=== PATIENT | male | born 1930 | race Caucasian/White ===

== ENCOUNTER 2017-12-20 16:34 | Inpatient (IN) | payer MEDICARE ==
[~2017-12-20] VITALS: Ht 177.8 cm; Wt 75.0 kg
[~2017-12-20 16:34] MED LIST: ASPIR 8181 MG PO; ATORVASTATIN CA80 MG PO; CARVEDILOL6.25 MG PO; CLINDAMYCIN HC150 MG; LISINOPRIL10 MG PO; MOTRIN IB200 MG PO; NORVASC10 MG PO; OMEPRAZOLE20 MG PO; PERCOCET 7.5-31 EACH PO
--- NOTE | 2017-12-20 19:10 | NUR ---
PATIENT ADMITTED TO ROOM 110 WITH TRANSFER FROM THE STRETCHER TO THE BED AND 1 PERSON ASSIST. HE WAS ABLE TO STAND AT THE SIDE OF THE BED WITH ASSISTANCE AND VOID IN THE URINAL CLEAR URINE. TELE #4 WAS PLACED ON THE PATIENT AT THIS TIME AND RAILS WERE ALL RAISED UP IN THE BED AND WEIGHT WAS TAKEN VIA THE BED. PATIENT IS PLESANT BUT CONFUSED. REPORT GIVEN TO MILEY AQUINO.
--- NOTE | 2017-12-20 19:56 | EKG ---
[facility] [address] [facility] [place] [address] Signed Sinus rhythm with fusion complexes Low voltage QRS Borderline ECG No previous ECGs available Confirmed by KATHLEEN GLYNN MD ([id number]) on 12/20/2017 7:56:16 PM Electronically Signed By: KATHLEEN GLYNN MD 12/20/171955 PATIENT NAME: SHERRI SU Electrocardiogram DATE OF : [birth year] PHYSICIAN: KATHLEEN GLYNN MD REPORT #: [id number] REPORT IS CONFIDENTIAL AND NOT TO BE RELEASED WITHOUT AUTHORIZATION
--- NOTE | 2017-12-20 20:23 | NUR ---
PT HISTORY COMPLETED WITH ASSISTANCE OF PT'S . SHE REPORTS THAT PT WAS RECENT[facility]AG[facility]. PT ASSISTED TO THE BATHROOM, REQUIRED FREQUENT REDIRECTION AND INSTRUCTION REGARDING USE OF THE BATHROOM AND HYGIENE FOLLOWING. PT OVERESTIMATES ABILITY TO WALK HIMSELF TO THE BATHROOM, ATTEMPTS TO GET OUT OF BED BY HIMSELF. PT ASSISTED BACK TO BED AFTER USING THE BATHROOM, IMMEDIATELY STATES HE NEEDS TO USE THE BATHROOM WHEN HE IS BACK TO BED. PT ASSISTED TO THE BATHROOM AND BACK TO BED AGAIN. PT LUNGS SOUNDS CLEAR TO ALL LUNG KNOX. PT HAS PRODUCTIVE COUGH WITH THICK, YELLOW, MUCOUS. PT'S REPORTS THAT PT HAS 2-3 ALCOHOLIC BEVERAGES PER NIGHT, STATES THAT LAST TIME PT STOPPED DRINKING FOR A NIGHT, HE FELL. NOTIFIED, STATES "I'M AWARE". BED ALARM ACTIVATED, PT WITH CALL LIGHT IN REACH. PT'S PLANS TO GO HOME FOR THE NIGHT. PT DENIES OTHER NEEDS AT THIS TIME. EATING ICE CREAM AT THIS TIME.
--- NOTE | 2017-12-20 20:26 | NUR ---
ASSISTED/ 1 PA TO THE BATHROOM AND BACK TO BED. PATIENT HAD A BOWEL MOVEMENT. BED ALARM ON. SIDE TABLE AND CALL LIGHT WITHIN REACH.
--- NOTE | 2017-12-20 21:11 | NUR ---
charge nurse rounding note: In bed, bed alarm on, pt watching tv. call light and fluids at hands reach, no requests
--- NOTE | 2017-12-20 22:19 | NUR ---
ALARM WENT OFF, FOUND PATIENT NO GOWN IN THE BATHROOM. OFFERED THE GOWN, HE REFUSED STATED HE SLEEP NAKED. PATIENT IS BACK IN BED. PATIENT PULLED THE TELE OFF AND REFUSED TO HAVE IT BACK ON.
--- NOTE | 2017-12-20 22:30 | NUR ---
PT CRAWLED OUT OF BED. BED ALARM ON. TOOK OFF HIS GOWN, HAS PULLED TELE OFF, TELE REPLCED SEVERAL TIMES, WONT KEEP IT ON. BACK TO BED, SEMICOOPERATIVE, CONFUSED. RAILS UPX3, BED ALRM ON. MESSAGE LEFT WITH DR GLYNN HOSPITALIST PHONE NUMBER.
--- NOTE | 2017-12-20 22:34 | NUR ---
MILES ALEXANDER NOTIFIED RE PATIENT REFUSED TO HAVE GOWN AND TELE ON.
--- NOTE | 2017-12-20 23:15 | NUR ---
PT CRAWLING OUT OF BED, BED ALARM ON, CONFUSED, NOT FOLLOWING DIRECTIONS. BACK TO BED, RAILS UP, BED ALARM ON. PT REASSURED, NOT RECEPTIVE TO TEACHING OR INSTRUCTIONS
--- NOTE | 2017-12-20 23:16 | NUR ---
PT UP IN BED, STATES "I CAN'T SLEEP I NEED SOMETHING THIS BED IS SOUNCOMFORTABLE I CANT DO THIS", PT TURNING BACK AND FORTH IN BED, PULLING AT IV SITE. PT APPEARS AGITATED SO 1MG ATIVAN IV ADMINISTERED. CALL [facility] BED ALARM ON NAD PT IN VIEW OF NURSING STATION. IV WRAPPED WITH COBAN. DISTAL CMS INTACT.
--- NOTE | 2017-12-21 00:46 | NUR ---
PT ATTEMPTING EXIT BED. PT STATES THAT HE NEEDS TO USE THE BATHROOM. PT ASSISTED TO BATHROOM WITH 2 PA. PT VOIDED AND ASSISTED BACK TO BED. PT STATES THAT HE IS SHORT OF BREATH, SA02 88%. O2 PLACED AT 2LPM. PT ATTEMPTING TO TAKE OFF, EDUCATION PROVIDED. PT LEFT NC IN PLACE. TELE LEADS REPLACED. BED ALARM ACTIVATED. PT DENIES FURTHER NEEDS. CALL LIGHT WITHIN REACH. ROOM IN VIEW OF NURSES STATION WITH CURTAIN OPEN.
--- NOTE | 2017-12-21 01:06 | NUR ---
PT ATTEMPTING TO EXIT BED. STATES THAT HE NEEDS TO USE THE BATHROOM. REMINDED PT THAT HE JUST WENT. HE STATES THAT HE NEEDS TO GO AGAIN. ATTEMPTED TO HELP PT USE THE URINAL, PT STATES THAT HE WANTS TO USE THE BATHROOM. PT ASSISTED INTO THE BATHROOM WITH 2PA. PT UNABLE TO VOID. PT ASSISTED BACK TO BED. PT ATTEMPTING TO REMOVED TELE AND O2, EDUCATION PROVIDED. PT ASSESSMENT COMPLETE. RHONCI AUSCLTATED TO ALL LUNG KNOX. ENCOURAGED PT TO TAKE A DEEP BREATH AND COUGH. PT UNABLE TO FOLLOW COMMAND. RT NOTIFIED OF NEED FOR NEB. PT ORIENTED TO SELF ONLY. PT DENIES FURTHER NEEDS AT THIS TIME. CALL LIGHT WITHIN REACH. BED ALARM ACTIVATED. ROOM WITHIN VIEW OF NURSES STATION WITH CURTAIN OPEN.
--- NOTE | 2017-12-21 03:07 | NUR ---
PT TRYING TO CRAWL OUT OF BED, REAILS UP, BED ALARM ON. TOOK TELE AND O2 TUBING OFF. UP TO BRP WITH 2 ASSIST, VOIDED 250CC CLEAR YELLOW URINE. DECLINED TO USE URINAL OR BSC, WALKED TO BRP, SLIGHTLY UNSTEADY WITH 2 ASSIST. BACK TO BED, NOT RECEPTIVE TO INFORMATION/TEACHING. BED ALRM ON, O2 2LNC, TELE BACK ON
--- NOTE | 2017-12-21 04:05 | NUR ---
PT RESTING IN BED WITH EYES CLOSED. RESPIRATIONS EVEN AND UNLABORED. PT APPEARS TO BE SLEEPING. PT DOES NOT WAKE WHILE LOCKSTITCH COAT JOINER IN ROOM. CALL LIGHT WITHIN REACH. BED ALARM ACTIVATED. ROOM WITHIN VIEW OF NURSES STATION WITH CURTAIN OPEN.
--- NOTE | 2017-12-21 05:27 | NUR ---
PT RESTING IN BED WITH EYES CLOSED. RESPIRATIONS EVEN AND UNLABORED. PT DOES NOT WAKE WHILE DERRICK ENGINEER IN ROOM. APPEARS TO BE SLEEPING. CALL LIGHT WITHIN REACH. ROOM WITHIN VIEW OF NURSES STATION WITH CURTAIN OPEN. BED ALARM ACTIVE.
--- NOTE | 2017-12-21 07:07 | NUR ---
RECIEVED BEDSIDE REPORT FROM MILES TRENT. PT SLEEPING SOUNDLY. BED ALARM ON, PT'S PERSONAL SUPPLIES AND CALL LIGHT IN REACH.
--- NOTE | 2017-12-21 08:01 | NUR ---
PT IN BED. DROWSY, ORIENTED TO SELF, TO [place], THAT HE IS IN A HOSPITAL IN [place], AND THAT IT IS 2017. PT ANSWERED SEPTEMBER FOR DATE, DID NOT GIVE DAY. PT'S BED ALARM IS ON, PERSONAL SUPPLIES IN REACH, IS CALL BUTTON. PT REMINDED TO CALL FOR ASSISTANCE, AND NOT TO GET UP WITHOUT AWAITING ASSISTANCE FROM NURSING STAFF.
--- NOTE | 2017-12-21 08:43 | NUR ---
PT SITTING UPRIGHT IN BED, HOB ELEVATED. PT FEEDING HIMSELF BREAKFAST, TOLERATING WELL. PERSONAL SUPPLIES AND CALL LIGHT IN REACH. GAVE PT AM MEDICATIONS.
--- NOTE | 2017-12-21 10:05 | NUR ---
GOT URNINE SAMPLE FOR NURSE. PATIENT BACK IN BED WITH BED ALARM ON.
--- NOTE | 2017-12-21 10:30 | NUR ---
DR. GLYNN IN TO SEE PT, SPEAKING WITH HIM NOW.
--- NOTE | 2017-12-21 11:10 | NUR ---
PT RESTING IN BED WITH EYES CLOSED, OPENED EYES SPONTANEOUSLY WHEN THIS RN ENTERED ROOM. GAVE PT LASIX ORDERED, PROVIDED MEDICATION EDUCATION. PT VERBALIZED UNDERSTANDING. THIS RN ENCOURAGED PT TO GET UP OUT OF BED, TO RECLINER. PT AGREED, THEN ASKED IF HE COULD SLEEP A WHILE FIRST. PT NOW SLEEPING SOUNDLY IN BED. PT DID AGREE TO SIT UP IN RECLINER AFTER HE NAPS. CALL LIGHT AND PERSONAL SUPPLIES IN REACH.
--- NOTE | 2017-12-21 11:50 | NUR ---
PT SITTING UP IN RECLINER, FACING WINDOW, EATING FRUIT PLATE FOR LUNCH. PT HAS CHAIR ALARM ON. PERSONAL SUPPLIES AND CALL LIGHT IN REACH. PT HAD JUST VOIDED URINE PRIOR TO GETTING INTO RECLINER, WITH ASSISTANCE FROM VINCE CAMARGO. REMINDED PT TO CALL FOR ASSISTANCE, AND NOT TO GET UP WITHOUT A NURSING STAFF MEMBER WITH HIM. PT VERBALIZED UNDERSTANDING.
--- NOTE | 2017-12-21 13:35 | NUR ---
PATIENT'S CHAIR ALARM GOING OFF, THIS DISCIPLINARY HEARING OFFICER ENTERED ROOM TO ASSIST PATIENT UP TO BATHROOM. PATIENT STATED HE WOULD LIKE A SHOWER BUT NOT AT THIS TIME. PATIENT NEEDS REORIENTED AT TIMES. PATIENT BACK IN BED, BED ALARM ON. CALL LIGHT IN REACH. NO OTHER NEEDS AT THIS TIME.
--- NOTE | 2017-12-21 14:54 | NUR ---
NOTIFIED DR. LORENZANA VIA TELEPHONE OF PT'S BP OF 95/62. INSTRUCTED TO CONTINUE TO MONITOR.
--- NOTE | 2017-12-21 14:55 | NUR ---
PT SLEEPING SOUNDLY IN BED, BED ALARM ON, PERSONAL SUPPLIES AND CALL BUTTON IN REACH. NO S/S DISTRESS OR DISCOMFORT.
--- NOTE | 2017-12-21 15:47 | NUR ---
SEE NOTE REGARDING LOW SBP, AND NOTIFICATION OF DR. LORENZANA.
--- NOTE | 2017-12-21 17:24 | NUR ---
PT SITTING UP AT EDGE OF BED, EATING DINNER. BED ALARM ON. PERSONAL SUPPLIES AND CALL LIGHT IN REACH.
--- NOTE | 2017-12-21 17:57 | NUR ---
PT ATTEMPTED TO GET UP OUT OF RECLINER WITHOUT CALLING FOR NURSING STAFF ASSISTANCE ONCE THIS SHIFT. CHAIR ALARM WENT OFF, AND NURSING STAFF TO PT'S SIDE IMEDIEATELY. PT PLEASANTLY CONFUSED. INCONTINENT OF URINE IN ATTENDS, DRIBBLES AT TIMES, HAS URGENCY AND FREQUENCY. PT USES TOILET WITH 1-2 PERSON ASSIST. PT HAS TELE #4 ON, REMOVED ONCE THIS SHIFT, REPLACED BY THIS RN. HAS BEEN IN SINUS RHYTHM IN 80-90s. BED AND CHAIR ALARM USED THROUGHOUT SHIFT. PT ON RA, TOLERATING THIS WELL. HAS A PRODUCTIVE COUGH, SMALL AMOUNT THICK YELLOW SPUTUM PRODUCED. PT TOLERATED CARDIAC CHOPPED DIET FAIR TO WELL. DRINKING FLUIDS WELL. ECHO ORDERED BUT NOT YET DONE, NO CHARGE ATTENDANT IS CURRENTLY AVAILABLE.
--- NOTE | 2017-12-21 18:09 | NUR ---
NOTIFIED DR. LORENZANA VIA TELEPHONE OF PT'S BP OF 98/65, WITH A PULSE OF 102. NO NEW ORDERS AT THIS TIME.
--- NOTE | 2017-12-21 19:00 | NUR ---
BEDSIDE REPORT RECEIVED FROM OFFGOING RN. PT'S IN ROOM WITH PT. PT'S ASKING QUESTIONS DURING REPORT. ALL QUESTIONS ANSWERED. PT AND DENY NEEDS AT THIS TIME. CALL LIGHT WITHIN REACH.
--- NOTE | 2017-12-21 21:30 | NUR ---
PT RESTING IN BED WITH EYES CLOSED. RESPIRATIONS EVEN AND UNLABORED. PT APPEARS TO BE SLEEPING. CALL LIGHT WITHIN REACH. BED ALARM ACTIVE. ROOM WITHIN VIEW OF NURSES STATION. PT'S HAS GONE HOME FOR THE NIGHT.
--- NOTE | 2017-12-21 23:02 | NUR ---
PT RESTING IN BED WITH EYES CLOSED. RESPIRATIONS ARE EVEN AND UNLABORED. PT APPEARS TO BE SLEEPING. CALL LIGHT WITHIN REACH. BED ALARM ACTIVATED. ROOM WITHIN VIEW OF NURSES STATION WITH CURTAIN OPEN.
--- NOTE | 2017-12-22 00:05 | NUR ---
PT ATTEMPTING TO GET OUT OF BED UNASSISTED, BED ALARM SOUNDING. PT STATES THAT HE NEEDS TO USE THE BATHROOM. PT ASSISTED TO BSC AND BACK TO BED WITH 1 PA. PT'S TELE LEADS REPLACED. PT DENIES PAIN, NAUSEA, SOB. LUNG SOUNDS WITH EXPIRATORY WHEEZE THROUGHOUT. EXPIRATORY WHEEZE CLEARS WITH COUGH. PT ORIENTED X 4, REMAINS FORGETFUL. PT DENIES OTHER NEEDS AT THIS TIME. PT ORIENTED TO ROOM AND CALL LIGHT. CALL LIGHT LEFT IN PT'S LAP. BED ALARM ACTIVATED. ROOM WITHIN VIEW OF NURSES STATION WITH CURTAIN.
--- NOTE | 2017-12-22 02:30 | NUR ---
PT RESTING IN BED WITH EYES CLOSED. RESPIRATIONS EVEN AND UNLABORED. CALL LIGHT WITHIN REACH. BED ALARM ACTIVE. ROOM WITHIN VIEW OF NURSES STATION.
--- NOTE | 2017-12-22 05:44 | NUR ---
PT ATTEMPTING TO GET OUT OF BED UNASSISTED. BED ALARM SOUNDING. PT FOUND TO HAVE HAVE PULLED IV OUT. PT ASSESSMENT COMPLETE. LUNGS SOUND COURSE TO ALL LUNG KNOX AT THIS TIME. OCCASIONAL PRODUCTIVE COUGH NOTED. PT ASSISTED TO THE BEDSIDE COMMODE AND BACK TO BED. PT REORIENTED TO CALL LIGHT. BED ALARM ACTIVATED. PT DENIES FURTHER NEEDS. ROOM WITHIN VIEW OF NURSES STATION.
--- NOTE | 2017-12-22 05:55 | NUR ---
PT AWAKE OFF AND ON THIS SHIFT. PT REMAINS FORGETFUL. FREQUENTLY REMOVES TELEMETRY LEADS DESPITE REORIENTATION. PT IMPULSIVE, CONTINUES ATTEMPTS TO GET OUT OF BED UNAIDED. BED ALARM IN PLACE AT ALL TIMES. TELE #4, SR, 90'S. PRODUCTIVE COUGH WITH THICK YELLOW SPUTUM. LUNG SOUNDS ADVENTITIOUS. BEDSIDE SWALLOW EVAL, PT TOLERATED WELL. SWALLOW ADEQUATE. ECHO ORDERED, AWAITING TECH AVAILABILITY.
--- NOTE | 2017-12-22 07:55 | NUR ---
PLACED NEW IV TO RIGHT FOREARM, 20 G, AFTER 1 UNSUCCESSFUL ATTEMPT DISTAL TO SUCCESSFUL ATTEMPT. PT TOLERATED VERY WELL. PT IS SITTING UP IN RECLINER, CHAIR ALARM ON, KB, RT IN WITH PT AT THIS TIME.
--- NOTE | 2017-12-22 08:20 | NUR ---
PT SITTING UP IN RECLINER, PUTTING IN HEARING AIDS. HAS PERSONAL SUPPLIES IN REACH, CALL BUTTON AT SIDE.
--- NOTE | 2017-12-22 08:27 | NUR ---
NEW ORDERS, LEVAQUIN IV D/C'D, LEVAQUIN PO STARTED. NOTIFIED DR. LORENZANA THAT IV LEVAQUIN IS CURRENTLY INFUSING. RECIEVED VORB TO COMPLETE IV LEVAQUIN INFUSION, AND START LEVAQUIN PO TOMORROW.
--- NOTE | 2017-12-22 08:39 | NUR ---
PATIENT UP TO BATHROOM 1 PERSON ASSIST. PATIENT NOW BACK IN CHAIR EATING BREAKFAST. LINENS CHANGED. CALL LIGHT IN REACH. NO FURTHER NEEDS AT THIS TIME.
--- NOTE | 2017-12-22 09:40 | NUR ---
PATIENT UP IN CHAIR. RN IN ROOM. FRESHWATER GIVEN. CALL LIGHT IN REACH. NO FURTHER NEEDS AT THIS TIME.
--- NOTE | 2017-12-22 10:15 | NUR ---
PT UP FROM RECLINER WITH FWW WITH STANDBY ASSIST. PT AMBULATED IN HALLS WITH THIS RN, WITH FWW WITH STANDBY ASSIST. PT AMBULATED AROUND "LOOP" ONCE, DECLINED FURTHER AMBULATION AT THIS TIME. PT BACK TO ROOM 110, IS NOW SITTING UP IN RECLINER WATCHING TV. CHAIR ALARM ON, PERSONAL SUPPLIES IN REACH, IS CALL LIGHT. PT DENIED FURTHER NEEDS.
--- NOTE | 2017-12-22 11:01 | NUR ---
PATIENT TO SHOWER CHAIR WITH 1 PERSON ASSIST FWW. PATIENT ASSITED IN SHOWER. NEW GOWN PROVIDED. CALL LIGHT IN REACH. NO FURTHER NEEDS AT THIS TIME.
--- NOTE | 2017-12-22 11:24 | NUR ---
PT FINISHED WORKING WITH SHADI, PHYSICAL THERAPY, IS NOW BACK IN ROOM, SITTING UP IN RECLINER, CHAIR ALARM ON. PT EATING LUNCH. PERSONAL SUPPLIES AND CALL LIGHT IN REACH. PT REMAINS ON RA, TOLERATING WELL. CONTINUES TO HAVE A LOOSE PRODUCTIVE COUGH.
--- NOTE | 2017-12-22 12:47 | NUR ---
PT SITTING UP IN RECLINER, PERSONAL SUPPLIES AND CALL LIGHT IN REACH. DENIED NEEDS AT THIS TIME. CHAIR ALARM ON.
--- NOTE | 2017-12-22 13:43 | NUR ---
PATIENT BACK TO BED FROM CHAIR, 1 PERSON ASSIST. BEDISDE. FRESHWATER GIVEN. ALL LIGHT IN REACH. NO FURTHER NEEDS AT THIS TIME.
--- NOTE | 2017-12-22 14:16 | NUR ---
PT IN BED, UP TO BATHROOM WITH FWW WITH STANDBY ASSIST. PT VOIDED 250 CC CLEAR YELLOW URINE. PT BACK TO BED WITH FWW WITH STANDBY ASSIST. BED ALARM ON, PERSONAL SUPPLIES AND CALL LIGHT IN REACH.
--- NOTE | 2017-12-22 17:03 | NUR ---
PT SITTING UP AT EDGE OF BED, EATING DINNER. BED ALARM ON. PT ENCOURAGED TO DEEP BREATH AND COUGH, AND TO USE INSENTIVE SPIROMETER. PT AGREED. REMINDED PT TO USE CALL LIGHT FOR ASSISTANCE, PT VERBALIZED UNDERSTANDING. PERSONAL SUPPLIES AND CALL LIGHT IN REACH.
--- NOTE | 2017-12-22 17:47 | NUR ---
PATIENT SITTING UP IN BED. FRESHWATER GIVEN. CALL LIGHT IN REACH. NO FURTHER NEEDS AT THIS TIME.
--- NOTE | 2017-12-22 18:35 | NUR ---
PT ALERT, ORIENTED TO SELF, THAT HE IS IN [place], IN A HOSPITAL, DID NOT RECALL NAME OF HOSPITAL. PT ORIENTED TO YEAR WELL. DISORIENTED TO SOME EVENTS, FORGETFUL AT TIMES. REQUIRED VERBAL CUES/REMINDERS TO USE CALL LIGHT TO CALL FOR ASSISTANCE. LUNGS COARSE THROUGHOUT, DIMINISHED IN BASES. ON RA THROUGHOUT SHIFT, TOLERATED WELL. CONTINUES TO HAVE A PRODUCTIVE COUGH, COUGHING UP MODERATE AMOUNT OF THICK YELLOW MUCOUS. USED BED AND CHAIR ALARM THROUGHOUT SHIFT. PT HAS GENERALIZED WEAKNESS, UP WITH FWW WITH MINIMAL TO STANDBY ASSIST. PT AMBULATED IN ROOM WITH STAFF, AND AMBULATED IN HALLS WITH NURSING STAFF. TOLERANCE GOOD. DENIED PAIN THROUGHOUT SHIFT.
--- NOTE | 2017-12-22 19:05 | NUR ---
PT IS AWAKE IN BED WITH IN THE ROOM, NEW TELE LEADS PLACED. PT DENIES NEEDS AT THIS TIME. CALL LIGHT IS WITHIN REACH AND BED ALARM IS ON.
--- NOTE | 2017-12-22 20:41 | NUR ---
IN ROOM TO ASSESS PT, HE DENIES PAIN AT THIS TIME. HE IS ALERT AND ORIENTED AT THIS TIME BUT FORGETFUL. BED ALARM IS ON. PT DENIES NEEDS AT THIS TIME. CALL LIGHT IS WITHIN REACH.
--- NOTE | 2017-12-22 23:03 | NUR ---
1 PA TO BEDSIDE COMMODE AND BACK TO BED. CHECK TELE LEADS IN PLACED AND CHANGED BATTERY. BED ALARM ON.
--- NOTE | 2017-12-22 23:09 | NUR ---
PT IS AWAKE IN BED, DENIES NEEDS AT THIS TIME. BED ALARM IS ON.
--- NOTE | 2017-12-23 | NUR ---
HELPED PT TO THE COMMODE AND REPLACED TELE LEADS. HE IS BACK IN BED AND DENIES PAIN AT THIS TIME. CALL LIGHT IS WITHIN REACH AND BED ALARM IS ON.
--- NOTE | 2017-12-23 01:54 | NUR ---
HELPED PT TO COMMODE AND BACK TO BED, HE DENIES FURTHER NEEDS. CALL LIGHT IS WITHIN REACH AND BED ALARM IS ON.
--- NOTE | 2017-12-23 02:15 | NUR ---
PT HAS TAKEN HIS TEL OFF MULT TIMES, THIS NURSE HAS PUT IT BACK ON, HE TAKES THE STICKERS OFF, DOESNT' SEEM TO UNDERSTAND OR FORGETS AND REMOVES. HAS BEEN IN SR PER CCU. WILL TRY TO PUT TEL BACK ON WHEN HE IS MORE AWAKE TO SEE IF HE WILL KEEP ON OR WILL REFUSE.
--- NOTE | 2017-12-23 05:28 | NUR ---
PT WAS UP MULTIPLE TIME DURING THE NIGHT TO VOID. HE REMOVED HIS TELE LEADS MULTIPLE TIMES WELL. PT IS ALERT AND ORIENTED BUT FORGETFULL AND CONFUSED AT TIMES WELL AND HE IS EASILY REORIENTED. HE USES HIS CALL LIGHT AT TIME BUT THE BED ALARM HAS BEEN NECESSARY BECAUSE HE WILL TRY TO GET UP ON HIS OWN. HE HAS A PRODUCTIVE COUGH AND COARSE IN BASES AT TIMES.
--- NOTE | 2017-12-23 06:00 | NUR ---
IN ROOM TO ADMINISTER MEDICATION AND REPLACE TELE. WARM BLANKET GIVEN TO PT. HE DENIES FURTHER NEEDS. CALL LIGHT IS WITHIN REACH.
--- NOTE | 2017-12-23 07:54 | NUR ---
REPORT RECEIVED FROM MILES PEDERSEN. PT AWAKE AND RECIEVING NEB TREATMENT.
--- NOTE | 2017-12-23 09:15 | NUR ---
ROUNDED ON PATIENT RESTING COMFORTABLY IN BED FOR MORNING MEDICATIONS AND ASSESSMENT. BED ALARM ON. CALL LIGHT WITHIN REACH. PT IN ROOM TO WORK WITH PATIENT, ASSISTED PATIENT TO BATHROOM WELL. NO COMPLAINTS AT THIS TIME.
--- NOTE | 2017-12-23 11:46 | NUR ---
PATIENT IN BED WATCHING TV. STATES HE COUGHS WHEN EATING AND HAS BEEN FOR AWHILE. HE STATES HE WAS TOLD "IT'S GOING DOWN THE WRONG PIPE." HE NORMALLY EATS CEREAL FOR BREAKFAST AT HOME. A PBJ OR BLT SANDWICH MAYBE WITH SOME SOUP FOR LUNCH. DINNER LATER IN THE DAY. HE FEELS HE IS EATING ENOUGH AT HOME. HE USED TO WEIGH 180 LBS BUT CANNOT REMEMBER WHEN HE LAST WEIGHED 180 LBS. CURRENT WEIGHT IS 166 LBS. I MENTIONED HE COULD WEIGH HIMSELF ONCE A WEEK TO MAKE SURE HE IS NOT LOSING WEIGHT, WHICH MEANS HE IS NOT EATING ENOUGH CALORIES. HE DIDN'T KNOW THAT AND SAID HE HAS A SCALE AT HOME IN THE BATHROOM. PLAN IS FOR PATIENT TO HAVE AN MBS TO FURTHER ASSESS SWALLOWING. WILL CONTINUE TO MONITOR.
--- NOTE | 2017-12-23 12:41 | NUR ---
PATIENT UP TO BATHROOM AND BACK TO CHAIR 1 PERSON ASSIST. CALL LIGHT IN REACH. NO FURTHER NEEDS AT THIS TIME.
--- NOTE | 2017-12-23 14:30 | NUR ---
TALKED AT LENGTH WITH MRS SU REGARDING WHAT SHE NEEDS OR WANTS PT TO DO WHEN HE IS READY FOR DC. WE TALKED ABOUT HIM GOING TO A SNF, [facility], SHE DIDN'T REALLY WANT HIM GOING THERE. WE TALKED ABOUT THE HOSPITAL TRANSITIONAL SWING BED PROGRAM AND SHE STATED THAT IS WHAT SHE WANTS HIM TO DO, SO HE CAN GET STRONG ENOUGH TO RETURN HOME. EXPLAINED THE PROGRAM TO HER AND THE PT. STATED UNDERSTANDING.
--- NOTE | 2017-12-23 16:25 | NUR ---
ROUNDED ON PATIENT FOR AFTERNOON ASSESSMENT, RESTING COMFORTABLY IN BED. REQUESTED PEN AND PAPER TO WRITE WITH. NO COMPLAINTS OF PAIN. POSSESSIONS AT BEDSIDE. PHARMACIST WAS IN TO DISCUSS HOME MEDICATIONS WITH PATIENT, BUT PATIENT'S WASN'T PRESENT TO PROVIDE ASSISTANCE WITH THIS, SO PHARMCIST WILL RETURN LATER. NO MORE REQUESTS AT THIS TIME.
--- NOTE | 2017-12-23 17:18 | NUR ---
ROUNDED ON PATIENT. BROUGHT WARM BLANKETS. CLEANED UP BED TO MAKE IT MORE COMFORTABLE. BED ALARM ON.
--- NOTE | 2017-12-23 17:54 | NUR ---
PATIENT IN BED RESTING. FRESHWATER GIVEN. CALL LIGHT IN REACH. NO FURTHER NEEDS AT THIS TIME.
--- NOTE | 2017-12-23 18:12 | NUR ---
PATIENT EXPERIENCES OCCASIONAL CONFUSION, ESPECIALLY TO DATE. ROOM AIR. BED ALARM. SBA, FWW. SALINE LOCKED. CARDIAC DIET, CHOPPED FOOD, THIN LIQUIDS. PRESSURES HAVE BEEN SOFT. LEVAQUIN ADMINISTERED. MODIFIED BARIUM SWALLOW FOR TOMORROW. CASE MANAGEMENT CONSULT TODAY. PATIENT WORKED WITH PT. SWING BED STARTING TOMORROW.
--- NOTE | 2017-12-23 19:20 | NUR ---
RECEIVED REPORT FROM MILES WORLEY. PT LAYING IN BED WITH IN ROOM. PT ON ROOM AIR. IV SALINE LOCKED. BED ALARM ON AND PT ENCOURAGED TO USE CALL LIGHT.
--- NOTE | 2017-12-23 21:29 | NUR ---
ASSESSMENT COMPLETE. IV FLUSHED WNL AND SALINE LOCKED. CRACKLES IN LOWER LEFT LOBE. VITALS STABLE. DENIES TOILETING NEEDS. BED ALARM ON, CALL LIGHT NEXT TO PT.
--- NOTE | 2017-12-23 22:32 | NUR ---
CALL LIGHT ANSWERED, VINCE PAUL IN ROOM TO ASSIST PT TO RESTROOM.
--- NOTE | 2017-12-24 00:24 | NUR ---
PT SLEEPING, BREATHING EVEN AND UNLABORED. BED ALARM ON. CALL LIGHT IN REACH.
--- NOTE | 2017-12-24 01:59 | NUR ---
RESPONDED TO BED ALARM. PT ENTERING RESTROOM TO VOID. PT STATED, "I DONT NEED HELP". PT GIVEN CLEAN ATTENDS, RETURNED TO BED. ASSESSMENT COMPLETED. CRACKLES IN LOWER LOBES BILATERALLY. PT STATED HE WAS HAVING TROUBLE SLEEPING, GIVEN PRN ATIVAN. PT GIVEN ICE WATER AND COKE REQUESTED. NO FURTHER NEEDS AT THIS TIME. BED ALARM ON, CALL LIGHT IN REACH.
--- NOTE | 2017-12-24 04:52 | NUR ---
PT ASLEEP IN BED, EYES CLOSED, BREATHING UNLABORED. BED ALARM ON.
--- NOTE | 2017-12-24 05:29 | NUR ---
PT SLEPT ON/ OFF THROUGHOUT SHIFT. ALERT AND ORIENTED X3. 1 PERSON SBA WITH FWW TO RESTROOM, BED ALARM ON. CARDIAC DIET, CHOPPED WITH THIN LIQUIDS. IV SALINE LOCKED. CRACKLES IN BILATERAL LOWER LOBES, OXYGEN SATURATIONS WNL ON ROOM AIR. MODIFIED BARRIUM SWALLOW SCHEDULED FOR TODAY.
--- NOTE | 2017-12-24 08:12 | NUR ---
PT SITTING UP ON SIDE OF BED EATING BREAKFAST COMFORTABLY WITH NO C/O PAIN. PT A/O X4. PLEASANT, CALM AND COOPERATIVE. MEDS GIVEN AND ASSESSMENT COMPLETED. BED ALARM ON. CALL LIGHT WITHIN REACH. WILL CONTINUE TO MONITOR.
--- NOTE | 2017-12-24 08:18 | NUR ---
PATIENT IN BED RESTING. AM CARE DONE. CALL LIGHT IN REACH. NO FURTHER NEEDS AT THIS TIME.
--- NOTE | 2017-12-24 09:58 | NUR ---
PATIENT RESTING IN BED WITH EYES CLOSED. CALL LIGHT IN REACH. NO FURTHER NEEDS AT THIS TIME.
--- NOTE | 2017-12-24 10:05 | NUR ---
PT PLEASANT, AMBULATING WITH TREATMENT SPECIALIST INTO RESTROOM AT THIS TIME. PT STRONG ON FEET. NO QUESTIONS OR CONCERNS. PT AWARE OF UPCOMING BARIUM STUDY. EDUCATION GIVEN ON THIS PROCEDURE. QUESTIONS ANSWERED. WILL CONTINUE TO MONITOR.
--- NOTE | 2017-12-24 10:14 | NUR ---
PATIENT UP TO BATHROOM, 1 PERSON ASSIST FWW. PATIENT SEEMS MORE CONFUSED TODAY. PATIENT NOW GOING DOWN TO IMAGING.
--- NOTE | 2017-12-24 10:25 | NUR ---
PT TAKEN OFF UNIT AT THIS TIME FOR BARIUM SWALLOW STUDY.
--- NOTE | 2017-12-24 11:04 | NUR ---
PT HAS ARRIVED BACK INTO HIS ROOM ON UNIT AT THIS TIME. NO C/O PAIN. NO QUESTIONS OR CONCERNS. CALL LIGHT WITHIN REACH. FALL PRECAUTIONS IN PLACE. WILL CONTINUE TO MONITOR.
--- NOTE | 2017-12-24 11:31 | NUR ---
THIS RN NOTICED ONE OF PT'S HEARING AIDES BROKEN AT THIS TIME. OF THIS MORNING WHEN I HELPED PT PUT THEM IN HIS EARS, THEY BOTH WERE INTACT. I DID NOT WITNESS THE HEARING AIDE BEING BROKEN. BOTH BROKEN PARTS PLACED IN PLASTIC BIN AT BEDSIDE AND WILL INFORM HIS .
--- NOTE | 2017-12-24 12:08 | NUR ---
PATIENT SITTING UP EATING LUNCH. BEDSIDE. CALL LIGHT IN REACH. NO FURTHER NEEDS AT THIS TIME.
--- NOTE | 2017-12-24 13:21 | NUR ---
PT RESTING IN BED WATCHING TV; NO C/O PAIN, NO QUESTIONS OR CONCERNS. CALL LIGHT WITHIN REACH. FALL PRECAUTIONS IN PLACE, WILL CONTINUE TO MONITOR.
[2017-12-25] MEDS ORDERED: XYZAL5 MG PO (08:59)
== END 2017-12-24 14:05 | disposition swing bed (61) | DRG 179 ==
LOC: ED 16:34 → MS 18:15
PROVIDERS: ADMIT Internal Medicine
DX: J69.0 Pneumonitis due to inhalation of food and vomit (principal); R53.81 Other malaise; K22.9 Disease of esophagus, unspecified; I11.0 Hypertensive heart disease with heart failure; I50.9 Heart failure, unspecified; I25.2 Old myocardial infarction; K21.9 Gastro-esophageal reflux disease without esophagitis; E78.00 Pure hypercholesterolemia, unspecified; Z95.5 Presence of coronary angioplasty implant and graft
CPT/HCPCS: 36415; 71045; 74230; 80048; 81001; 83735; 83880; 84484; 85025; 92610; 92611; 93005; 93010; 94640; 94667; 94668; 96374; 96375; 97110; 97116; 97161; 97165; 99285; G8978; G8979; J0456; J0696; J1630; J1650; J1956; J2060; J3411

== ENCOUNTER 2017-12-24 14:05 | Inpatient (IN) | payer MEDICARE ==
[~2017-12-24] VITALS: Ht 177.8 cm; Wt 75.0 kg
--- NOTE | 2017-12-24 14:15 | NUR ---
PT SWITCHED TO SWING BED STATUS AT THIS TIME. PT IS A/O X4 BUT FORGETFUL. PLEASANT, CALM AND COOPERATIVE WITH NO C/O PAIN. ROOM AIR. BLL COURSE CRACKLES. STAND BY ASSIST/SUPERVISION WITH WALKER. STEADY ON FEET BUT IMPULSIVE AND NEEDS ALL FALL ALARMS IN PLACE. RIGHT FA PIV IN PLACE THAT WAS PLACED 12/22/17 AND IS SALINE LOCKED. BARIUM SWALLOW STUDY COMPLETED THIS AM. NO SKIN ISSUES OTHER THAN DY, FRAGILE AND BRUISING. ALL BELONGINGS AT BEDSIDE HAVE BEEN CHARTED. NO QUESTIONS OR CONCERNS AT THIS TIME. PT UP IN CHAIR WITH CALL LIGHT AND BELONGINGS WITHIN REACH. CHAIR ALARM IS ON. FALL PRECAUTIONS IN PLACE. WILL CONTINUE TO MONITOR.
--- NOTE | 2017-12-24 16:39 | NUR ---
PT RESTING IN BED WITH AND FAMILY MEMBER AT BEDSIDE. PT HAS NO C/O PAIN. HE'S WATCHING TV WITH NO QUESTIONS OR CONCERNS. CALL LIGHT AND FALL PRECAUTIONS IN PLACE. WILL CONTINUE TO MONITOR.
--- NOTE | 2017-12-24 18:03 | NUR ---
PT VS AND CONDITION STABLE TODAY ON 12/24/17 DAY SHIFT. PT WAS SWITCHED TO SWING BED STATUS THIS AFTERNOON. PT IS PLEASANT, CALM AND COOPERATIVE, WITH NO C/O PAIN OR DISCOMFORT AT ALL TODAY. PT IS SOMEWHAT FORGETFUL AT TIMES, NEEDING REMINDING TO USE CALL LIGHT AND IS SOMETIMES IMPULSIVE IN GETTING OUT OF BED OR CHAIR WITHOUT CALLING FIRST. HIGH FALL RISK SO ALL ALARMS ARE NEEDED. ROOM AIR. SALINE LOCKED. BARIUM SWALLOW STUDY COMPLETED THIS AM. SBA/SUPERVISION WITH WALKER. PT HAS NO QUESTIONS OR CONCERNS AT THIS TIME AND IS SITTING UP IN HIS CHAIR WITH CHAIR ALARM ON HE EATS HIS DINNER. CALL LIGHT WITHIN REACH. WILL CONTINUE TO MONITOR.
--- NOTE | 2017-12-24 18:14 | NUR ---
PATIENT UP IN CHAIR EATING DINNER. FRESHWATER GIVEN. CALL LIGHT IN REACH. NO FURTHER NEEDS AT THIS TIME.
--- NOTE | 2017-12-24 19:25 | NUR ---
RECEIVED REPORT FROM MILES GONZALEZ. PT AWAKE, LAYING IN BED. BED ALARM ON, CALL LIGHT IN REACH. NO REQUESTS AT THIS TIME.
--- NOTE | 2017-12-24 21:34 | NUR ---
ROUNDED CHARGE. PATIENT ASSISTED TO THE RESTROOM. PATIENT IS A SBA W/FWW. PATIENT WAS ABLE TO VOID. PATIENT IS NOW BACK IN BED RESTING. BED ALARM ON FOR SAFETY. CALL LIGHT IN REACH.
--- NOTE | 2017-12-24 22:42 | NUR ---
ASSESSMENT COMPLETE. IV FLUSHED AND SALINE LOCKED. CRACKLES IN LUNG BASES. PT EDUCATED TO USE CALL LIGHT WHEN NEEDING TO GET UP. PT VERBALIZED UNDERSTANDING. CALL LIGHT IN REACH AND BED ALARM ON.
--- NOTE | 2017-12-24 22:55 | NUR ---
BED ALARM SOUNDING, PT UP TO RESTROOM FOR VOID. PT INSTRUCTED TO USE CALL LIGHT PRIOR TO GETTING OUT OF BED, VERBALIZES UNDERSTANDING. CALL LIGHT NEXT TO PT. BED ALARM SET. WARM BLANKET PROVIDED TO PT.
--- NOTE | 2017-12-25 00:36 | NUR ---
RESPONDED TO BED ALARM. PT UP TO USE RESTROOM WITH FWW, VOID X1. BACK TO BED, WARM BLANKETS GIVEN. CALL LIGHT IN REACH, BED ALARM ON.
--- NOTE | 2017-12-25 02:15 | NUR ---
BED ALARM SOUNDING, PT UP TO RESTROOM FOR VOID, GAIT STEADY, BACK TO BED, BED ALARM ON. NO REQUESTS AT THIS TIME. CALL LIGHT NEXT TO PT.
--- NOTE | 2017-12-25 04:13 | NUR ---
RESPONDED TO BED ALARM. PT REQUESTING TO USE RESTROOM. UP TO RESTROOM WITH FWW AND BACK TO BED. WARM BLANKETS GIVEN PER PT REQUEST. CALL LIGHT IN REACH, BED ALARM ON.
--- NOTE | 2017-12-25 05:41 | NUR ---
PT SLEPT ON/ OFF THROUGHOUT SHIFT. DID NOT USE CALL LIGHT WHEN UP TO RESTROOM, BED ALARM ON. IV SALINE LOCKED, WNL. CARDIAC DIET, CHOPPED, THIN LIQUIDS. ECHO SCHEDULED FOR TODAY.
--- NOTE | 2017-12-25 06:39 | NUR ---
PT ASLEEP IN BED, AWAKE EASILY. PO ABX GIVEN. ICE WATER AT BEDSIDE. BED ALARM MEDICAL TECHNICIAN ASSISTANT LIGHT IN REACH.
--- NOTE | 2017-12-25 07:05 | NUR ---
received report from day shift rn. pt in bed awake. thanh mcgill in reach/ saline locked. denies needs.
--- NOTE | 2017-12-25 08:51 | NUR ---
GOT PATIENT A WARM BLANKET AND NEW GLASS OF ICE WATER. BED ALARM ON.
[2017-12-25] MEDS ORDERED: XYZAL5 MG PO (08:59)
--- NOTE | 2017-12-25 09:00 | NUR ---
SPEACH THERAPY IN WITH PT. .
--- NOTE | 2017-12-25 09:00 | NUR ---
MED REC COMPLETE
--- NOTE | 2017-12-25 11:18 | NUR ---
OCCUPATIONAL THERAPY IN TO WORK WITH PT. PT COOPERATIVE WITH CARES AND TOLERATING WELL.
--- NOTE | 2017-12-25 12:24 | NUR ---
PT SITTING IN CHAIR, SEEMINGLY LOOKING FOR SOMETHING. FOUND HIS CELLPHONE AND WAS GOING TO CALL HIS AND HAVE HER BRING HIM TODAY'S PAPER.I TOLD HIM THAT EACH DAY'S PAPER IS NOW MAILED FOR DELIVERY, BUT SHE MIGHT FIND ONE IN A NEWSSTAND. IT WAS MOST PRESSING ON HIS MIND. HE SHOOK MY HAND SAID HE FEELS OK, IN FACT HE STATED HE NEVER FELT BAD. EXTENDED A BLESSING, HE THANKED ME AND WILL FOLLOW NEEDED V
--- NOTE | 2017-12-25 14:45 | NUR ---
PT OOB WITH PHYSICAL THERAPY AMBULATING HALLS. PT TOLERATING WELL.
--- NOTE | 2017-12-25 16:30 | NUR ---
FAMILY AT BEDSIDE. PT KEEPS TAKING CLOTHS OFF EVEN WHEN REMINDED TO KEEP THEM ON. SEEMS TO BE FORGETFULL. DENIES ANY NEEDS AT THIS TIME. CALL LIGHT IN REACH. BED ALARM IN PLACE.
--- NOTE | 2017-12-25 18:33 | NUR ---
PT HAD GOOD DAY. SWING BED. SBA. BED ALARM IN PLACE. PT FORGETFUL D/T POSS DEMENTIA. PT CONTINENT OF URINE. WORKING WELL WITH PT/OT/STSharon YUSUF COMPLETED TODAY LOOKING FOR CHF.
--- NOTE | 2017-12-25 19:25 | NUR ---
RECEIVED REPORT FROM MILES MANN. PT USED CALL LIGHT, REQUESTED TO USE RESTROOM. SBA WITH FWW TO RESTROOM TO VOID X1, RETURNED TO BED. IV SALINE LOCKED. ICE WATER GIVEN PER PT REQUEST. BED ALARM ON, CALL LIGHT IN REACH.
--- NOTE | 2017-12-25 20:30 | NUR ---
OT ON SWING BED STATUS, IMPULSIVE, BED ALARM ON, HIGH FALL RISK PROTOCOL IN PLACE, PT INSTRUCTED, SEMI RECEPTIVE,. BACK TO BED, BED ALARM ON, CALL LIGHT PLACED IN HIS HAND. PLEASANTLY CONFUSED.
--- NOTE | 2017-12-25 20:36 | NUR ---
HELPED PT TO THE BATHROOM AND BACK TO BED WITH HIS FWW. BED ALARM SET. BEDSIDE TABLE AND CALL LIGHT WITHIN REACH.
--- NOTE | 2017-12-25 21:57 | NUR ---
VITALS AND I&OS DONE AND CHARTED. BEDSIDE TABLE AND CALL LIGHT WITHIN REACH.
--- NOTE | 2017-12-25 22:05 | NUR ---
ASSESSMENT COMPLETE. ALERT AND ORIENTED X3. IV FLUSHED, SALINE LOCKED WNL. PT HANDED CALL LIGHT, INSTRUCTED TO USE WHEN NEEDING TO GET UP. PT GIVEN SLEEPING MASK. BED ALARM ON.
--- NOTE | 2017-12-25 22:20 | NUR ---
CALL LIGHT ANSWERED, PT GIVEN REMOTE REQUESTED. NO ADDL REQUESTS, BED ALARM ON.
--- NOTE | 2017-12-26 00:35 | NUR ---
PT APPEARS TO BE SLEEPING IN BED. VISIBLE CHEST RISE. BED ALARM ON.
--- NOTE | 2017-12-26 00:55 | NUR ---
RESPONDED TO CALL LIGHT. PT REQUESTED TO USE RESTROOM. SBA WITH FWW TO RESTROOM TO VOID. BACK TO BED, WARM BLANKET GIVEN. CALL LIGHT IN REACH, BED ALARM ON.
--- NOTE | 2017-12-26 02:26 | NUR ---
PT APPEARS TO BE SLEEPING. BREATHING UNLABORED. BED ALARM ONCOLOGY ADMIN LIGHT IN REACH.
--- NOTE | 2017-12-26 03:05 | NUR ---
RESPONDED TO CALL LIGHT. PT SITTING AT EDGE OF BED. PT PULLED IV OUT. ASSISTED PT TO PUT SOCKS ON. DENIES TOILETING NEEDS. PT BACK TO BED. BED ALARM CONDUCTOR ROAD FREIGHT LIGHT IN REACH.
--- NOTE | 2017-12-26 04:26 | NUR ---
RESPONDED TO CALL LIGHT. PT SITTING AT EDGE OF BED, REQUESTED TO USE RESTROOM. SBA AND FWW TO RESTROOM, VOID X1. PT BACK TO BED, WARM BLANKET GIVEN. CALL LIGHT IN REACH, BED ALARM ON.
--- NOTE | 2017-12-26 04:36 | NUR ---
NOTIFIED OF PT PULLING IV OUT. STATES OKAY TO LEAVE OUT.
--- NOTE | 2017-12-26 05:37 | NUR ---
PT PULLED IV OUT, PER OKAY FOR NO ACCESS. USING CALL LIGHT OCCASIONALLY. BED ALARM ON. SBA WITH FWW TO RESTROOM.
--- NOTE | 2017-12-26 08:30 | NUR ---
PATIENT SITTING ON EDGE OF BED EATING BREAKFAST. NO COMPLAINT AT THIS TIME. COFFEE GIVEN TO PATIENT.
--- NOTE | 2017-12-26 09:17 | NUR ---
TALKED WITH DR LORENZANA AND HE IS ORDERING A ST ORDER AN OUTPT.
--- NOTE | 2017-12-26 09:30 | NUR ---
DOMENIC WORKED WITH PT. DRESSED. AWAITING TO BE DISCHARGED.
--- NOTE | 2017-12-26 09:58 | NUR ---
GOT PATIENT DRESSED SO HE COULD WORK WITH PHYSICAL THERAPY THIS MORNING.
--- NOTE | 2017-12-26 10:29 | NUR ---
xiomara resting in bed. patient and staff unable to get a hold of to inform her of discharge order. will continue to try to contact.
== END 2017-12-26 11:40 | disposition home or self-care (01) | DRG 91 ==
LOC: MS 14:05
PROVIDERS: ADMIT Internal Medicine
DX: R29.6 Repeated falls (principal); J69.0 Pneumonitis due to inhalation of food and vomit; R53.1 Weakness; K22.9 Disease of esophagus, unspecified; I11.0 Hypertensive heart disease with heart failure; I50.9 Heart failure, unspecified; Z88.0 Allergy status to penicillin; Z79.82 Long term (current) use of aspirin; Z79.899 Other long term (current) drug therapy
CPT/HCPCS: 93306; 94668; 97110; 97162; 97165; 97535

== ENCOUNTER 2018-01-13 08:00 | Day surgery (SDC) | payer MEDICARE ==
[~2018-01-13] VITALS: Ht 177.8 cm; Wt 74.9 kg
--- NOTE | ~2018-01-13 | OR ---
[facility] [address] [place], [place] [address] Draft DATE OF OPERATION: 01/13/2018 SURGEON: Missael Rosas MD PREOPERATIVE DIAGNOSES: 1. Recurrent dysphagia. 2. History of distal esophageal stricture with prior dilation. POSTOPERATIVE DIAGNOSIS: Short distal esophageal stricture. PROCEDURE: 1. Esophagogastroduodenoscopy with biopsy of stricture. 2. Esophageal dilation 51-Nauruan, Mauritian over the wire technique. ANESTHESIA: Intravenous sedation, propofol infusion, Missael Anderson CRNA. INDICATION: This 87-year-old white man is patient Dr. Jewell, well known to me from the past. He has had solid-food dysphagia in the past and food impaction in the past. He has also undergone esophageal dilation by me in the past. He remains on Prilosec. Notably, he has developed some amount of dementia. His notes that he has significant chest wall trouble swallowing particularly to meat and sometimes bread. He is admitted at this time to undergo upper endoscopy and probable dilation. He understands the risks of bleeding, infection, perforation, and so on. FINDINGS: There was a short distal esophageal stricture. An endoscope initially would not pass through it, but with gentle pressure popped through into the stomach. The stomach itself was reasonably normal as was the duodenum. Retroflexed view confirmed a somewhat complex hiatal hernia. Biopsies of the esophageal stricture were undertaken, did not have a malignant appearance. Esophageal dilation was undertaken with Mauritian over the wire dilation technique using a 51-Nauruan dilator. DESCRIPTION OF PROCEDURE: The patient was brought to the endoscopy OR and in the lateral decubitus position given intravenous sedation to the point of slurred speech and nystagmus with full monitoring by the sql report analyst using propofol infusional technique. A bite block was placed. An PATIENT NAME: SHERRI SU OPERATIVE REPORT DATE OF : [birth year] REPORT #: [id number] PHYSICIAN: MISSAEL ROSAS MD PCP: ANDRE JEWELL MD REPORT IS CONFIDENTIAL AND NOT TO BE RELEASED WITHOUT AUTHORIZATION [facility] [address] [place], [place] [address] Draft Olympus video upper endoscope was passed in the hypopharynx. The vocal cords appeared normal. Scope was advanced to the esophagus and passed down to the distal esophagus, where a very subtle stricture was noted. With gentle pressure, the scope was passed through the stricture into the stomach. A distinct pop was felt upon entering the stomach. Rugal folds appeared normal as did the stomach itself in the antrum. The scope was passed through the pylorus into the duodenum, which was normal. Scope was withdrawn. A retroflexed view undertaken showing a somewhat complex hiatal hernia and a small amount of blood, where the scope passed through into the stomach itself. The scope was repositioned above the distal esophagus and found to have the stricture having cracked as expected. Nevertheless dilation was deemed advisable. The scope was once again reintroduced into the stomach and an Mauritian over the wire dilator system readied. The wire was passed down the channel of the scope with a flexible coiled and into the region of the pylorus. The scope was then carefully withdrawn stabilizing the wire and ultimately removing the scope. The stabilized wire was examined for its distance and was considered appropriate in length. A 51-Nauruan Mauritian over the wire dilator was passed over the wire with all due care and lubrication of the wire and the dilator. The dilator was passed over the wire in the usual way with deliberate care extending as far as appropriate and then withdrawn in continuity with the wire itself. A bite block was replaced and the endoscope passed in the hypopharynx and passed down the esophagus without problem and easily through the distal esophagus into the stomach. Examination of the stricture area was undertaken and biopsies taken of the stricture itself. There was no sign of complication and only minimal blood. The scope was withdrawn and removed. The patient was taken to recovery room in good condition. CONCLUDING DIAGNOSIS: Distal esophageal stricture, benign in appearance, biopsied and now dilated to 51-Nauruan with Mauritian over the wire dilator. PLAN: He will maintain a mechanical soft diet for the next 48 hours. He will continue on his Prilosec 20 mg daily. MD BOB Marino/MODL /[id number] PATIENT NAME: SHERRI SU OPERATIVE REPORT DATE OF : [birth year] REPORT #: [id number] PHYSICIAN: MISSAEL ROSAS MD PCP: ANDRE JEWELL MD REPORT IS CONFIDENTIAL AND NOT TO BE RELEASED WITHOUT AUTHORIZATION [address] [address] Draft cc: Andre Jewell MD Copies: ANDRE JEWELL MD ~ PATIENT NAME: SHERRI SU OPERATIVE REPORT DATE OF : [birth year] REPORT #: [id number] PHYSICIAN: MISSAEL ROSAS MD PCP: ANDRE JEWELL MD REPORT IS CONFIDENTIAL AND NOT TO BE RELEASED WITHOUT AUTHORIZATION
[~2018-01-13 08:00] MED LIST changes: +XYZAL5 MG PO
--- NOTE | 2018-01-13 09:30 | NUR ---
01/13/18 0930 Tracee Juarez 0920 PT ARRIVED IN PACU ASLEEP WITH ORAL AIRWAY IN PLACE. BP 86/51. ANESTHESIA AWARE AND MEDS GIVEN. 926 BP 115/56. NO RESPONSE TO VERBAL OR TACTILE STIMULI.
== END 2018-01-13 10:10 | disposition home or self-care (01) ==
LOC: DS 08:00 → OPS 08:00 → DS 12:00 → OPS 12:00
PROVIDERS: Surgery
PROC: 0D758ZZ Dilation of Esophagus, Via Natural or Artificial Opening Endoscopic (ICD-10-PCS; 2018-01-13)
PROC: 0DB58ZX Excision of Esophagus, Via Natural or Artificial Opening Endoscopic, Diagnostic (ICD-10-PCS; principal; 2018-01-13 08:30)
DX: K21.0 Gastro-esophageal reflux disease with esophagitis (principal); K22.2 Esophageal obstruction; I25.2 Old myocardial infarction; G30.9 Alzheimer's disease, unspecified; J44.9 Chronic obstructive pulmonary disease, unspecified; Z95.5 Presence of coronary angioplasty implant and graft; Z88.0 Allergy status to penicillin; Z98.890 Other specified postprocedural states; Z79.82 Long term (current) use of aspirin; Z79.899 Other long term (current) drug therapy; F02.80 Dementia in other diseases classified elsewhere, unspecified severity, without behavioral disturbance, psychotic disturbance, mood disturbance, and anxiety
CPT/HCPCS: J2370; J2704; J7120